=== PATIENT | male | born 1995 | race African-American/Black ===

== ENCOUNTER 2016-11-19 23:30 | Emergency (ER) | payer OTHER ==
--- NOTE | ~2016-11-19 | CR63 ---
[facility]. [facility] A Service of [facility] & [facility] RADIOLOGY TEXT RESULTS PATIENT: HANK FLOWERS LOCATION: SED : [birth year] UNIT #: [id number] AGE: [address]: Jovany Fletcher SEX: M ORDER DR: [id number] [place] [id number] E MR#: [id number] Acc #: [id number] NAME: HANK FLOWERS : 1995 SEX: M STUDY DATE/TIME: 11/20/2016 0:19 UNIT: SED ROOM: STUDY DESCRIPTION: CR Chest 2 View Attending Physician: Jovany Fletcher P.A.-C. Ordering Physician: Jovany Fletcher P.A.-C. Primary Care Physician: [facility] MEDICAL IMAGING REPORT This report is preliminary unless electronic signature is present. EXAM Two-view chest INDICATIONS Chest pain since last year. PROCEDURE Frontal and lateral views of the chest COMPARISON: None FINDINGS Heart size within normal limits. Previous sternotomy. The lungs are clear. No pleural fluid. No pneumothorax. IMPRESSION No active process Dictated by... Vincenzo Sommer M.D. THIS IS AN ELECTRONICALLY VERIFIED REPORT Vincenzo Sommer M.D. at 11/20/2016 9:56 PM ASHLEY/ruben TD: 11/20/2016 07:28 JOB #: [id number] MEDICAL IMAGING REPORT Page 1 of 1
[2016-11-19] MEDS ORDERED: NO MEDICATIONS (23:43)
[2016-11-20 00:27] LABS: URINE SOURCE CLEAN CATCH
[2016-11-20 00:29] LABS: URINE APPEARANCE CLEAR; URINE BILIRUBIN NEG (NEG); URINE BLOOD NEG (NEG); URINE COLOR YELLOW; URINE GLUCOSE NEG (NORM); URINE KETONE NEG (NEG); URINE LEUKOCYTE ESTERASE NEG (NEG); URINE NITRATE NEG (NEG); URINE PROTEIN NEG (NEG); URINE UROBILINOGEN 0.2 MG/DL (NORM)
[2016-11-20 00:39] LABS: CULTURE INDICATED? YES; MICRO INDICATED? YES; URINE BACTERIA NEG (NEG); URINE MUCUS PRESENT; URINE RBC 0-2 /[HPF] (0-2)
[2016-11-22 10:21] LABS: CHLAMYDIA TRACH Detected (Not Detected); N GONOR Not Detected (Not Detected)
== END 2016-11-20 00:59 | disposition home or self-care (01) ==
LOC: SED 23:30
PROVIDERS: Physician Assistant
DX: N34.1 Nonspecific urethritis (principal); R07.9 Chest pain, unspecified; G89.29 Other chronic pain; F17.200 Nicotine dependence, unspecified, uncomplicated
CPT/HCPCS: 71020; 81003; 87086; 87491; 87591; 96372; 99283; 99284; J0696